=== PATIENT | male | born 1965 | race Caucasian/White ===

== ENCOUNTER 2017-08-22 14:59 | Emergency (ER) | payer OTHER ==
[~2017-08-22] VITALS: Ht 167.6 cm; Wt 84.0 kg
[2017-08-22 15:01] VITALS: BP 200/129; PULSE 91; RESP 16; TEMP 99.5; O2SAT 96
[2017-08-22] MEDS ORDERED: diphenhydrAMINE HCL 50 MG CAP PO ONE (15:45)
[2017-08-22] MEDS ORDERED: cloNIDine HCL 0.2 MG TAB PO ONE (15:45)
[2017-08-22] MEDS ORDERED: [UNRECOGNIZED DRUG - CODE] PO (15:47)
--- NOTE | 2017-08-22 15:58 | PD ---
HPI Chief Complaint: Allergic/Adverse Reaction Time Seen by Provider: 15:18 Travel History International Travel<30 days: No Contact w/Intl Traveler<30days: No Traveled to known affect area: No History of Present Illness HPI This patient 2 hours ago was stung by a wasp in the left cheek. He developed some local swelling and itching. He went to an urgent care center and it was found that his blood pressure was very elevated. I gave him a Solu-Medrol injection and sent him to the emergency room. On arrival his blood pressure is 233 systolic. He is not having any shortness of breath or wheezing or airway issues. Symptoms severity is mild. No alleviating factors. Hypertension is likely exacerbated by his stress and frustration with having to come to the emergency room. PFSH Past Medical History Medical History: Denies Significant Hx Tetanus Vaccination: < 5 Years Past Surgical History Surgical History: No Previous Surgery Social History Alcohol Use: Yes (4 beers) Tobacco Use: Yes Substance Use: No Allergies-Medications (Allergen,Severity, Reaction): Coded Allergies: oxymetazoline (Verified Allergy, Unknown, 08/22/17) Reported Meds & Prescriptions Reported Meds & Active Scripts Active Reported Allergy 4 Hour (Chlorpheniramine Maleate) 4 Mg Tab 4 Mg PO Q4H PRN Review of Systems General / Constitutional: No: Fever Eyes: No: Visual changes HENT: No: Headaches Cardiovascular: No: Chest Pain or Discomfort Respiratory: No: Shortness of Breath Gastrointestinal: No: Abdominal Pain Genitourinary: No: Dysuria Musculoskeletal: No: Pain Skin: Positive Itching, No Rash Neurologic: No: Weakness Psychiatric: No: Depression Endocrine: No: Polydipsia Hematologic/Lymphatic: No: Easy Bruising Physical Exam Narrative GENERAL: Well-nourished, well-developed patient in no apparent distress. SKIN: Focused skin assessment reveals no rash and nodules. Skin is Warm and dry. HEAD: Atraumatic. Normocephalic. EYES: Pupils equal and round. No scleral icterus. No injection or drainage. ENT: No nasal bleeding or discharge. Mucous membranes pink and moist. I don't see any objective swelling of the face. No swelling of lips or uvula or tongue. No submental induration. No hives NECK: Trachea midline. No JVD. CARDIOVASCULAR: Regular rate and rhythm. No murmur appreciated. RESPIRATORY: No accessory muscle use. Clear to auscultation. Breath sounds equal bilaterally. GASTROINTESTINAL: Abdomen soft, non-tender, nondistended. Hepatic and splenic margins not palpable. MUSCULOSKELETAL: No obvious deformities. No clubbing. No cyanosis. No edema. NEUROLOGICAL: Awake and alert. No obvious cranial nerve deficits. Motor grossly within normal limits. Normal speech. PSYCHIATRIC: Appropriate mood and affect; insight and judgment normal. Data Data Last Documented VS Vital Signs Date Time Temp Pulse Resp B/P (MAP) Pulse Ox O2 Delivery O2 Flow Rate FiO2 08/22/17 15:01 99.5 91 16 200/129 (152) 96 Orders Orders Clonidine (Catapres) (08/22/17 15:45) Diphenhydramine (Benadryl) (08/22/17 15:45) [facility] Medical Decision Making Medical Screen Exam Complete: Yes Emergency Medical Condition: Yes Medical Record Reviewed: Yes Differential Diagnosis Hypertensive urgency, axillary hypertension, white coat syndrome, localized allergic reaction Narrative Course I have reviewed the patient's electronic medical record. Patient's blood pressure is accelerated at this time. I gave him a dose of clonidine and will observe and reassess. He is neurologically intact. He denies headache Regarding his standing, I don't see much objective evidence of any swelling or localized reaction. He already had steroids and I gave him a dose of Benadryl. Likewise will observe and reassess I gave him a dose of clonidine. Blood pressure 170/108 Giving him a dose of Procardia but he is stable for outpatient follow-up at this point He does have a primary physician he should contact and he is going to check and record his blood pressure 102 times daily and record for the physician. He will use Benadryl dose in 6 hours but beyond that I don't think the allergic reaction needs anything His face is completely back to normal on exam Diagnosis Primary Impression: Allergic reaction to bee sting Additional Impression: Accelerated hypertension Additional Instructions: Check and record blood pressure 1 or 2 times daily The patient was advised to follow up with their physician and return if they worsen. Take a Benadryl dose at 10:30 PM tonight Med/Other Pt SpecificInfo: Other Disposition: 01 DISCHARGE HOME Condition: Stable Kostas Gates MD Aug 22, 2017 15:58
[2017-08-22 16:50] VITALS: BP 159/98
[2017-08-22] MEDS ORDERED: NIFEdipine 10 MG CAP PO ONE (17:00)
== END 2017-08-22 17:11 | disposition home or self-care (01) ==
LOC: NEPD 14:59
DX: T63.461A Toxic effect of venom of wasps, accidental (unintentional), initial encounter (principal); I10 Essential (primary) hypertension; Z72.0 Tobacco use
CPT/HCPCS: 99283; Q0163